=== PATIENT | male | born 1985 | race Caucasian/White ===

== ENCOUNTER 2023-01-10 08:32 | Outpatient (AMB) | payer OTHER, SELFPAY ==
--- NOTE | 2023-01-10 09:35 | MHC.OFFWIV ---
Intake Vital Signs 01/10/23 09:43 Height 5 ft 11 in Weight 233 lb BMI 32.5 BP 128/76 Blood Pressure Location Rt brachial Position Sitting Pulse 80 Pulse Source Pulse Oximeter Temp 97.9 F Temp Source Temporal Artery Scan Pulse Oximetry (%) 97 Oxygen Delivery Method Room Air Intake Visit Reasons: [employer], Right palm blister [phone] Intake Note: pt is here for c/o right palm blister yesterday Allergies No Known Allergies Allergy (Verified 01/10/23 09:37) Do you need a note to return to daycare/school/sports/work: Yes HPI [employer], Right palm blister [phone] HPI Details 37-year-old male presents to the office for a sick visit. Patient is reporting blisters in the right hand for the past 1 day. Was cleaning his closet yesterday morning and noticed symptoms after. Physical Exam Vital Signs: Last Vital Signs Temp 97.9 F 01/10/23 09:43 Pulse 80 01/10/23 09:43 BP 128/76 01/10/23 09:43 Pulse Ox 97 01/10/23 09:43 Oxygen Delivery Method Room Air 01/10/23 09:43 BMI result Body Mass Index 32.5 Skin Other: Erythematous area on the right hand at the base of the index finger on the volar surface. Tiny fluctuant area. Left potts: 1 cm area erythematous consistent with a skin tear. Assessment & Plan Assessment & Plan (1) Cellulitis of hand: Code(s): L03.119 - Cellulitis of unspecified part of limb Plan: Antibiotic called in. If symptoms do not improve to follow-up here. Medications: New cephalexin 500 mg PO BID 14 caps 0RF Coding Level of Care Code Est Pt Level 3 (48304) Diagnoses Cellulitis of hand L03.119
[2023-01-10 09:43] VITALS: BP 128/76; PULSE 80; TEMP 36.6; O2SAT 97; BMI 32.5
== END 2023-01-10 10:12 | disposition home or self-care (01) ==
PROVIDERS: Visit Provider Internal Medicine
DX: L03.119 Cellulitis of unspecified part of limb (principal)
CPT/HCPCS: 99213

== ENCOUNTER 2023-01-21 12:40 | Outpatient (AMB) | payer OTHER, SELFPAY ==
[2023-01-21 13:03] VITALS: BP 116/78; PULSE 87; TEMP 36.4; O2SAT 99; BMI 31.8
--- NOTE | 2023-01-21 13:03 | MHC.OFFWIV ---
Intake Vital Signs 01/21/23 13:03 Height 5 ft 11 in Weight 228 lb BMI 31.8 BP 116/78 Blood Pressure Location Lt brachial Position Sitting Pulse 87 Pulse Source Pulse Oximeter Temp 97.6 F Temp Source Temporal Artery Scan Pulse Oximetry (%) 99 Oxygen Delivery Method Room Air Intake Visit Reasons: EP Cough (Masked) Intake Note: pt is here for c/o cough and get dizzy Allergies No Known Allergies Allergy (Verified 01/21/23 13:13) HPI HPI Comments History of Present Illness Details This is a 37-year-old male who presents to the office today for sick visit. Patient complaining of cough x3 days. Patient states he just recently went back to light duty at work 3 days ago and started to developed a persistent cough. 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 He states the cough is occasionally dry but sometimes productive with clear sometimes yellow sputum. He reports occasional shortness of breath, which she describes as difficulty taking a deep breath. He denies any fevers or chills. Review of Systems Const All systems reviewed & are unremarkable except as noted in HPI and below Reports no additional complaints Eyes Reports no additional complaints ENT Reports no additional complaints Card Reports no additional complaints Resp Reports no additional complaints GI Reports no additional complaints Reports no additional complaints Musc Reports no additional complaints Skin/Breast Reports system reviewed and no additional complaints, except as documented Neuro Reports no additional complaints Psych Reports no additional complaints Endo Reports no additional complaints Naresh/Lymph Reports no additional complaints Aller/Immun Reports no additional complaints Physical Exam Vital Signs: Last Vital Signs Temp 97.6 F 01/21/23 13:03 Pulse 87 01/21/23 13:03 BP 116/78 01/21/23 13:03 Pulse Ox 99 01/21/23 13:03 Oxygen Delivery Method Room Air 01/21/23 13:03 BMI result Body Mass Index 31.8 Const Other: Vital signs reviewed. Constitutional: Non-toxic appearing. No acute distress. Well-developed and well-nourished. HEENT: Normocephalic and atraumatic. Skin: Warm and dry. No rashes or lesions noted. Neck: Full and painless range of motion. No cervical lymphadenopathy. Cardio: Regular rate and rhythm. No murmurs, gallops, or rubs. No lower extremity edema. No JVD. Pulmonary: No respiratory distress. No accessory muscle usage. Minimal scattered expiratory wheezing. Gastrointestinal: Soft, nontender, and nondistended in all 4 quadrants. Genitourinary: No CVA tenderness. Musculoskeletal: Normal range of motion in joints throughout the body. No deformity or other signs of injury. Neuro: Alert and oriented x4. Cranial nerves 2-12 grossly intact. No focal deficits appreciated. Psych: Normal mood and affect. Assessment & Plan Assessment & Plan (1) Acute bronchitis: Code(s): J20.9 - Acute bronchitis, unspecified Plan: This is a 37-year-old male presenting to the office complaining of a sometimes dry, sometimes productive cough x 3 days in the setting of returning to light duty at work. On physical examination, patient has minimal scattered expiratory wheezing. His vital signs are stable, his physical examination is otherwise benign, and he is overall nontoxic appearing. His history and physical most consistent with acute bronchitis and possibly reactive airway disease brought on by exposure to products at work. Check chest x-ray to definitively rule out pneumonia; if chest x-ray shows pneumonic consolidation/infiltrate, we will send antibiotics to patient's pharmacy. Otherwise, we will treat with p.o. prednisone 40 mg daily x5 days, p.o. benzonatate 100 mg 3 times daily as needed for cough, and albuterol inhaler 2 puffs 4 times daily as needed for wheezing/shortness of breath. Patient instructed to follow-up here or proceed directly to the emergency room if he were to develop worsening/persistent symptoms including fever/chills, chest pain, shortness of breath, hemoptysis, or worsening sputum production. Patient verbalizes understanding and he is in agreement with the plan. Orders: Orders XR chest 2V Today R05.9 - Cough, unspecified Medications: New prednisone 40 mg (2 x 20 mg) PO DAILY 10 tabs 0RF benzonatate 100 mg PO TID PRN 14 caps 0RF cough albuterol sulfate 90 mcg/actuation 2 puffs inhalation QID PRN 6.7 grams 0RF shortness of breath or wheezing Coding Level of Care Code Est Pt Level 3 (99149) Diagnoses Acute bronchitis J20.9
== END 2023-01-21 13:35 | disposition home or self-care (01) ==
PROVIDERS: PCP Physician Assistant; Visit Provider Physician Assistant Medical
DX: J20.9 Acute bronchitis, unspecified (principal)
CPT/HCPCS: 99213

== ENCOUNTER 2023-01-21 13:27 | Outpatient (REF) | payer OTHER, SELFPAY ==
--- NOTE | ~2023-01-21 | XR_ITS ---
EXAMINATION: XR CHEST CLINICAL INFORMATION: Cough COMPARISON: None available. TECHNIQUE: 2 views of the chest were obtained. FINDINGS: vascularity. LUNGS: Lungs are clear. No pneumothorax is seen. BONES: Bony skeleton is intact. Lower cervical spine fixation with metallic plate and screws is partially visualized. XR/XR chest 2V IMPRESSION: Normal chest x-ray. Please note that chest x-ray has limited sensitivity for groundglass infiltrates.
== END 2023-01-21 13:28 | disposition home or self-care (01) ==
LOC: HO.HMGCX 13:27
PROVIDERS: PCP Physician Assistant; Visit Provider Physician Assistant Medical
DX: R05.9 Cough, unspecified (principal)
CPT/HCPCS: 71046